=== PATIENT | male | born 1945 | race African-American/Black ===

== ENCOUNTER 2024-11-25 09:37 | Inpatient (IN) | payer MEDICARE ==
[2024-11-25] VITALS (51 sets, daily range): BP systolic 99–217; BP diastolic 43–203; PULSE 87–114; RESP 12–37; TEMP 37.6–39.4; O2SAT 93–99
[~2024-11-25] VITALS: Ht 170.2 cm; Wt 94.3 kg
[2024-11-25] MEDS ORDERED: ATOR-2 PO (09:49)
[2024-11-25] MEDS ORDERED: INSU100I32 SUBCUT (09:49)
[2024-11-25] MEDS ORDERED: TAMS-54 PO (09:49)
[2024-11-25] MEDS ORDERED: INSU100I28 SUBCUT (09:49)
[2024-11-25] MEDS ORDERED: LOSA1TAB40 PO (09:49)
[2024-11-25] MEDS ORDERED: LORAZEPAM 2MG/ML INJ IV ONE (10:15)
[2024-11-25] MEDS: LORAZEPAM 2MG/ML UD SYRINGE IV NR (10:25)
[2024-11-25] MEDS ORDERED: ACETAMINOPHEN 325MG SUPP PR ONE (10:30)
[2024-11-25] MEDS: PIPERACILLIN/TAZO 3.375G/50ML 50 ML IV ONE (10:34)
[2024-11-25] MEDS: SODIUM CHLORIDE 0.9% (SEPSIS BOLUS) IV ONE (10:43)
[2024-11-25] MEDS: LEVETIRACETAM 1500MG PREMIX 100 ML IV SCH ×2 (10:48→21:43)
[2024-11-25 10:52] LABS: HEMATOCRIT. 50.9 % (42.0-52.0); HEMOGLOBIN. 15.9 g/dL (14.0-18.0); MEAN CORPUSCULAR HEMOGLOBIN 27.5 pg (28.0-32.0); MEAN CORPUSCULAR HGB CONC 31.3 g/dL (31.0-37.0); MEAN CORPUSCULAR VOLUME 87.9 fL (80.0-94.0); MEAN PLATELET VOLUME 8.6 fl (7.4-10.4); PLATELET 233 x1000/uL (130-400); RED BLOOD CELL COUNT 5.79 mill/uL (4.7-6.1); RED CELL DISTRIBUTION WIDTH 16.2 % (11.6-14.6); WHITE BLOOD COUNT 12.4 x1000/uL (4.5-11.0)
[2024-11-25 10:53] LABS: DIFFERENTIAL COMMENT 1
[2024-11-25 11:01] LABS: CHLORIDE 103 mEq/L (98-107); POTASSIUM 4.2 mEq/L (3.5-5.1); PROTHROMBIN TIME 10.9 sec (9.6-11.0); SODIUM 138 mEq/L (136-145)
[2024-11-25 11:02] LABS: CALCIUM 8.9 mg/dL (8.7-10.4); CARBON DIOXIDE 15 mEq/L (21-32)
[2024-11-25] MEDS: ACETAMINOPHEN 650MG SUPP PR NR (11:06)
[2024-11-25 11:07] LABS: CREATININE 1.3 mg/dL (0.6-1.3); GLUCOSE 363 mg/dL (70-105); UREA NITROGEN BLOOD 16 mg/dL (9-23)
[2024-11-25 11:08] LABS: ETHANOL BLOOD < 10 mg/dL (<10)
[2024-11-25 11:09] LABS: ALANINE AMINOTRANSFERASE 20 IU/L (10-49); ALBUMIN 3.8 g/dL (3.2-4.8); ASPARTATE AMINOTRANSFERASE 21 IU/L (<34); BILIRUBIN DIRECT 0.1 mg/dL (<=3.0)
[2024-11-25 11:10] LABS: BETA HYDROXYBUTYRATE 7.2 mMol/L (0.0-0.3); BILIRUBIN TOTAL 0.7 mg/dL (0.1-1.0)
[2024-11-25] MEDS: VANCOMYCIN 1G PREMIX 200 ML IV ONE (11:13)
[2024-11-25] MEDS: IOHEXOL-350 100 ML BOTTLE ONE (11:13)
[2024-11-25 11:27] LABS: LACTIC ACID 3.6 mmol/L (0.4-2.0)
[2024-11-25] MEDS ORDERED: BLOOD SUGAR DIAGNOSTIC STRIP TEST PRN ×2 (11:30→11:45)
[2024-11-25 11:32] LABS: TROPONIN I HIGH SENSITIVITY 87 ng/L (3.0-53)
[2024-11-25] MEDS ORDERED: DEXT 5%/0.9% NACL 1,000 ML IV SCH (11:45)
[2024-11-25] MEDS ORDERED: KCL 20MEQ/100ML PREMIX 100 ML IV PRN (11:45)
[2024-11-25] MEDS ORDERED: DEXTROSE 50% WATER 50ML SYRINGE IV PRN ×2 (11:45→13:30)
[2024-11-25] MEDS ORDERED: POTASSIUM CHLORIDE 40 MEQ in SODIUM CHLORIDE 0.9% 230 ML IV PRN ×2 (11:45→12:00)
[2024-11-25] MEDS ORDERED: INSULIN REGULAR (DRIP) 100 UNITS in SODIUM CHLORIDE 0.9% 99 ML IV SCH (11:45)
[2024-11-25] MEDS ORDERED: SODIUM PHOSPHATE 15 MMOL in SODIUM CHLORIDE 0.9% 245 ML IV PRN ×2 (11:45→12:00)
[2024-11-25] MEDS ORDERED: MAGNESIUM 2 G PREMIX 50 ML IV PRN ×2 (11:45→12:00)
[2024-11-25] MEDS: BLOOD SUGAR DIAGNOSTIC STRIP TEST SCH ×2 (11:53→13:55)
[2024-11-25] MEDS ORDERED: ACETAMINOPHEN 325MG TABLET PO PRN (12:00)
[2024-11-25] MEDS ORDERED: PIPERACILLIN/TAZOBACTAM 3.375 G in DEXTROSE 5% WATER 50 ML IV SCH (12:00)
[2024-11-25] MEDS ORDERED: ONDANSETRON HCL 4MG/2ML INJ IV PRN (12:00)
[2024-11-25] MEDS ORDERED: NICARDIPINE 40MG/200ML PREMIX 200 ML IV PRN (12:00)
[2024-11-25] MEDS ORDERED: MAGNESIUM/ALUMINUM HYDROXIDE/SIMETHICONE 30ML UDC PO PRN (12:00)
[2024-11-25] MEDS ORDERED: NA PHOS,M-B/NA PHOS,DI-BA ENEMA 118ML PR PRN (12:00)
[2024-11-25] MEDS ORDERED: IPRATROPIUM/ALBUTEROL 0.5-3(2.5)MG/3ML NEB HHN PRN (12:00)
[2024-11-25] MEDS ORDERED: DOCUSATE SODIUM 100MG CAPSULE PO PRN (12:00)
[2024-11-25 12:05] LABS: BG BASE EXCESS -11.8 mmol/L (-2.0-3.0); BG CARBOXYHEMOGLOBIN 0.8 % (0.5-1.5); BG DEOXYHEMOGLOBIN 3.7 % (0.0-5.0); BG FRACTION INSPIRED OXYGEN 21; BG HCO3 ACT 11.3 mmol/L (21.0-28.0); BG METHEMOGLOBIN 0.1 % (0.5-1.5); BG OXYGEN SATURATION 96.3 % (94.0-98.0); BG OXYHEMOGLOBIN 95.4 % (94.0-98.0); BG PCO2 21.5 mmHg (35.0-48.0); BG PO2 80.6 mmHg (83.0-108.0); BG SAMPLE SITE RIGHT BRACHIAL; BG TOTAL HEMOGLOBIN 16.3 g/dL (13.5-17.5); BG VENT MODE ROOM AIR
[2024-11-25 12:14] LABS: CHLORIDE 105 mEq/L (98-107); POTASSIUM 4.3 mEq/L (3.5-5.1); SODIUM 138 mEq/L (136-145)
[2024-11-25] MEDS: SODIUM CHLORIDE 0.9% 1,000 ML IV SCH (12:14)
[2024-11-25] MEDS: INSULIN REGULAR 100U/100ML PMX 100 ML IV SCH ×2 (12:14→19:20)
[2024-11-25 12:15] LABS: CALCIUM 8.5 mg/dL (8.7-10.4); CARBON DIOXIDE 15 mEq/L (21-32)
[2024-11-25] MEDS ORDERED: VASOPRESSIN 20 UNIT in SODIUM CHLORIDE 0.9% 99 ML IV PRN (12:15)
[2024-11-25 12:19] LABS: PLATELET ESTIMATE NORMAL
[2024-11-25 12:20] LABS: CREATININE 1.3 mg/dL (0.6-1.3); GLUCOSE 371 mg/dL (70-105); UREA NITROGEN BLOOD 14 mg/dL (9-23)
[2024-11-25 12:22] LABS: ANISOCYTOSIS 1+
[2024-11-25 12:22] LABS: PHOSPHORUS 3.4 mg/dL (2.5-4.9)
[2024-11-25] MEDS: INSULIN REGULAR (HUMULIN R) 1000UNITS/10ML VIAL IV NR (12:31)
[2024-11-25 12:43] LABS: *AMPHETAMINES SCREEN URINE NEGATIVE (NEGATIVE); *BARBITURATES SCREEN URINE NEGATIVE (NEGATIVE); *BENZODIAZEPINES SCREEN URINE NEGATIVE (NEGATIVE); *COCAINE SCREEN URINE NEGATIVE (NEGATIVE); CANNABINOID URINE SCREEN NEGATIVE (NEGATIVE); METHADONE URINE SCREEN NEGATIVE (NEGATIVE); OPIATES URINE SCREEN NEGATIVE (NEGATIVE); PHENCYCLIDINE URINE SCREEN NEGATIVE (NEGATIVE)
[2024-11-25 12:44] LABS: ECSTASY MDMA SCREEN URINE NEGATIVE (NEGATIVE)
[2024-11-25 12:51] LABS: CHLORIDE 107 mEq/L (98-107); SODIUM 138 mEq/L (136-145)
[2024-11-25 12:52] LABS: CALCIUM 8.7 mg/dL (8.7-10.4); CARBON DIOXIDE 11 mEq/L (21-32)
[2024-11-25 12:57] LABS: CREATININE 1.2 mg/dL (0.6-1.3); GLUCOSE 371 mg/dL (70-105)
[2024-11-25 12:58] LABS: LDL CHOLESTEROL 221 mg/dL (5-100); TRIGLYCERIDE 130 mg/dL (0-150); UREA NITROGEN BLOOD 13 mg/dL (9-23)
[2024-11-25 12:59] LABS: CHOLESTEROL 302 mg/dL (<200); HDL CHOLESTEROL 45 mg/dL (>55)
[2024-11-25 13:02] LABS: T4 FREE 1.26 ng/dL (0.89-1.76); THYROID STIMULATING HORMONE 0.69 uIU/mL (0.55-4.78)
[2024-11-25 13:16] LABS: CLARITY URINE CLEAR (CLEAR); COLOR URINE STRAW (YELLOW); GLUCOSE URINE 3+ (NEGATIVE); PH URINE 5.5 (4.5-8.0); PROTEIN URINE 3+ (NEGATIVE)
[2024-11-25 13:17] LABS: KETONES URINE 3+ (NEGATIVE); LEUKOCYTE ESTERASE URINE NEGATIVE (NEGATIVE); NITRITE URINE NEGATIVE (NEGATIVE); OCCULT BLOOD URINE 3+ (NEGATIVE); UROBILINOGEN URINE 0.2 E.U./dL (0.2-1.0)
[2024-11-25 13:41] LABS: SQUAMOUS EPITHELIAL CELL URINE 1+ /lpf (RARE/1+)
[2024-11-25 13:42] LABS: BACTERIA URINE TRACE; WBC URINE 0-2 /hpf (0-2)
[2024-11-25] MEDS: HYDRALAZINE 20MG/ML VIAL IV NR (13:55)
[2024-11-25] MEDS: ENOXAPARIN 40MG/0.4ML SYR SUBCUT SCH (13:57)
[2024-11-25] MEDS: LORAZEPAM 2MG/ML UD SYRINGE IV PRN (14:00)
[2024-11-25] MEDS: SODIUM CHLORIDE 0.45% 1,000 ML IV SCH (14:01)
[2024-11-25] MEDS ORDERED: GADOTERATE MEGLUMINE 5 MMOL/10 ML VIAL IV ONE (14:45)
[2024-11-25] MEDS: DEXT 5%/0.45% NACL 1000ML 1,000 ML IV SCH (15:30)
[2024-11-25] MEDS: PANTOPRAZOLE SODIUM 40 MG/VIAL IV SCH (15:31)
[2024-11-25] MEDS: VANCOMYCIN 750MG PREMIX 150 ML IV NR (15:32)
[2024-11-25 16:15] LABS: CARBON DIOXIDE 16 mEq/L (21-32); CHLORIDE 112 mEq/L (98-107); POTASSIUM 3.2 mEq/L (3.5-5.1); SODIUM 143 mEq/L (136-145)
[2024-11-25 16:22] LABS: PHOSPHORUS 1.4 mg/dL (2.5-4.9)
[2024-11-25 16:23] LABS: CREATINE KINASE 145 IU/L (46-171)
[2024-11-25 16:34] LABS: TROPONIN I HIGH SENSITIVITY 190 ng/L (3.0-53)
[2024-11-25] MEDS: HYDRALAZINE 20MG/ML VIAL IV PRN (16:36)
[2024-11-25] MEDS: DOXYCYCLINE 100MG/100ML 100 ML IV SCH (16:38)
[2024-11-25] MEDS: KCL 20MEQ/100ML PREMIX 100 ML IV PRN (16:38)
[2024-11-25] MEDS: LACOSAMIDE IV SCH (17:32)
[2024-11-25] MEDS: SODIUM CHLORIDE 0.9% IV SCH (17:32)
[2024-11-25] MEDS: CEFTRIAXONE 1GM/50ML 50 ML IV NR (17:33)
[2024-11-25] MEDS: METRONIDAZOLE 500MG TABLET PO SCH (17:47)
[2024-11-25] MEDS ORDERED: LEVETIRACETAM 1,000MG in NACL 100ML PREMIX IV SCH (21:00)
[2024-11-25] MEDS: ATORVASTATIN CALCIUM 40MG TABLET PO SCH (21:43)
[2024-11-25] MEDS: ACETAMINOPHEN 1000MG/100ML 100 ML IV PRN (21:46)
[2024-11-25] MEDS: INSULIN GLARGINE 100 UNITS/ML SUBCUT NR (23:49)
[2024-11-25 23:50] LABS: CHLORIDE 112 mEq/L (98-107); POTASSIUM 3.7 mEq/L (3.5-5.1); SODIUM 139 mEq/L (136-145)
[2024-11-25 23:51] LABS: CARBON DIOXIDE 16 mEq/L (21-32)
[2024-11-25 23:58] LABS: CREATINE KINASE 310 IU/L (46-171); PHOSPHORUS 1.8 mg/dL (2.5-4.9)
[2024-11-26] VITALS (90 sets, daily range): BP systolic 96–192; BP diastolic 48–159; PULSE 76–95; RESP 17–31; TEMP 37.1–37.8; O2SAT 94–100
[2024-11-26 00:05] LABS: TROPONIN I HIGH SENSITIVITY 205 ng/L (3.0-53)
[2024-11-26 00:20] LABS: HEPATITIS B SURFACE ANTIGEN NEGATIVE (Negative)
[2024-11-26 00:41] LABS: HEPATITIS C AB NON REACTIVE (Neg) (Negative)
[2024-11-26 02:45] LABS: BG BASE EXCESS -6.4 mmol/L (-2.0-3.0); BG CARBOXYHEMOGLOBIN 1.1 % (0.5-1.5); BG DEOXYHEMOGLOBIN 3.3 % (0.0-5.0); BG HCO3 ACT 17.6 mmol/L (21.0-28.0); BG METHEMOGLOBIN 0.1 % (0.5-1.5); BG OXYGEN SATURATION 96.7 % (94.0-98.0); BG OXYHEMOGLOBIN 95.5 % (94.0-98.0); BG PH 7.371 (7.350-7.450); BG PO2 81.8 mmHg (83.0-108.0); BG SAMPLE SITE LEFT RADIAL; BG TOTAL HEMOGLOBIN 14.9 g/dL (13.5-17.5); BG VENT MODE ROOM AIR
[2024-11-26] MEDS: VANCOMYCIN 750MG/150ML (BAXTER) IV SCH (04:50)
[2024-11-26] MEDS ORDERED: DEXTROSE 50% WATER 50ML SYRINGE IV PRN (05:45)
[2024-11-26 06:19] LABS: BASOPHILS % 0.3 % (0.0-2.0); HEMATOCRIT. 46.1 % (42.0-52.0); HEMOGLOBIN. 14.8 g/dL (14.0-18.0); LYMPHOCYTES % 15.6 % (20.0-50.0); MEAN CORPUSCULAR HEMOGLOBIN 27.7 pg (28.0-32.0); MEAN CORPUSCULAR VOLUME 86.6 fL (80.0-94.0); MEAN PLATELET VOLUME 8.7 fl (7.4-10.4); MONOCYTES % 12.3 % (2.0-8.0); NEUTROPHILS % 71.8 % (40.0-76.0); PLATELET 165 x1000/uL (130-400); RED BLOOD CELL COUNT 5.32 mill/uL (4.7-6.1); RED CELL DISTRIBUTION WIDTH 16.1 % (11.6-14.6); WHITE BLOOD COUNT 13.7 x1000/uL (4.5-11.0)
[2024-11-26] MEDS: BLOOD SUGAR DIAGNOSTIC STRIP TEST SCH ×2 (06:30→18:00)
[2024-11-26 06:46] LABS: CALCIUM 8.3 mg/dL (8.7-10.4); CARBON DIOXIDE 15 mEq/L (21-32); CHLORIDE 109 mEq/L (98-107); SODIUM 139 mEq/L (136-145)
[2024-11-26 06:52] LABS: CREATININE 1.1 mg/dL (0.6-1.3); GLUCOSE 235 mg/dL (70-105); UREA NITROGEN BLOOD 14 mg/dL (9-23)
[2024-11-26] MEDS: INSULIN LISPRO 100 UNITS/ML SUBCUT SCH ×2 (07:03→07:04)
[2024-11-26] MEDS: NITROGLYCERIN 50MG PREMIX 250 ML IV PRN (08:00)
[2024-11-26] MEDS ORDERED: NICARDIPINE 40MG/200ML PREMIX 200 ML IV PRN (09:15)
[2024-11-26] MEDS: INSULIN GLARGINE 100 UNITS/ML SUBCUT SCH ×2 (09:23→21:18)
[2024-11-26] MEDS: ASPIRIN 81MG TABLET PO SCH (09:30)
[2024-11-26] MEDS: LOSARTAN 100 MG TABLET PO SCH (09:31)
[2024-11-26] MEDS: TAMSULOSIN HCL 0.4MG SR CAPSULE PO SCH (09:32)
[2024-11-26] MEDS: HYDROCHLOROTHIAZIDE 12.5MG CAPSULE PO SCH (09:33)
[2024-11-26] MEDS: DOXYCYCLINE 100MG/100ML 100 ML IV SCH (09:34)
[2024-11-26 09:39] LABS: BG BASE EXCESS -6.8 mmol/L (-2.0-3.0); BG CARBOXYHEMOGLOBIN 0.7 % (0.5-1.5); BG DEOXYHEMOGLOBIN 2.8 % (0.0-5.0); BG HCO3 ACT 16.7 mmol/L (21.0-28.0); BG OXYGEN SATURATION 97.2 % (94.0-98.0); BG OXYHEMOGLOBIN 96.5 % (94.0-98.0); BG PCO2 28.8 mmHg (35.0-48.0); BG PH 7.381 (7.350-7.450); BG PO2 84.1 mmHg (83.0-108.0); BG TOTAL HEMOGLOBIN 15.6 g/dL (13.5-17.5); BG VENT MODE ROOM AIR
[2024-11-26] MEDS: SODIUM BICARBONATE 8.4% 50MEQ/50ML SYR IV NR (11:55)
[2024-11-26] MEDS: SODIUM CHLORIDE 0.9% 1,000 ML IV SCH (12:00)
[2024-11-26 12:05] LABS: CHLORIDE 110 mEq/L (98-107); POTASSIUM 3.7 mEq/L (3.5-5.1); SODIUM 137 mEq/L (136-145)
[2024-11-26 12:07] LABS: CALCIUM 7.9 mg/dL (8.7-10.4); CARBON DIOXIDE 18 mEq/L (21-32)
[2024-11-26 12:11] LABS: GLUCOSE 272 mg/dL (70-105)
[2024-11-26 12:12] LABS: UREA NITROGEN BLOOD 14 mg/dL (9-23)
[2024-11-26 13:10] LABS: AMMONIA 20 uMol/L (<32)
[2024-11-26] MEDS: INSULIN GLARGINE 100 UNITS/ML SUBCUT NR (14:20)
[2024-11-26] MEDS ORDERED: IOHEXOL-350 100 ML BOTTLE ONE (14:23)
[2024-11-26 16:14] LABS: PHOSPHORUS 2.6 mg/dL (2.5-4.9)
[2024-11-26] MEDS: ACETAMINOPHEN 325MG TABLET PO PRN (18:27)
[2024-11-26 20:06] LABS: CHLORIDE 111 mEq/L (98-107); POTASSIUM 3.7 mEq/L (3.5-5.1); SODIUM 141 mEq/L (136-145)
[2024-11-26 20:07] LABS: CALCIUM 8.1 mg/dL (8.7-10.4); CARBON DIOXIDE 21 mEq/L (21-32)
[2024-11-26 20:12] LABS: CREATININE 0.9 mg/dL (0.6-1.3); GLUCOSE 279 mg/dL (70-105); UREA NITROGEN BLOOD 12 mg/dL (9-23)
[2024-11-26] MEDS ORDERED: INSULIN GLARGINE 100 UNITS/ML SUBCUT SCH (21:00)
[2024-11-27] VITALS (64 sets, daily range): BP systolic 105–170; BP diastolic 54–122; PULSE 74–90; RESP 14–30; TEMP 36.4–36.9; O2SAT 93–100
[2024-11-27] MEDS: VANCOMYCIN 1GM/200ML PMX (BAXTER) IV SCH (00:19)
[2024-11-27 05:48] LABS: CHLORIDE 111 mEq/L (98-107); POTASSIUM 3.6 mEq/L (3.5-5.1); SODIUM 143 mEq/L (136-145)
[2024-11-27 05:49] LABS: CALCIUM 8.1 mg/dL (8.7-10.4); CARBON DIOXIDE 23 mEq/L (21-32)
[2024-11-27 05:53] LABS: BASOPHILS % 0.4 % (0.0-2.0); EOSINOPHILS % 1.1 % (0.0-5.0); HEMATOCRIT. 44.7 % (42.0-52.0); HEMOGLOBIN. 14.5 g/dL (14.0-18.0); LYMPHOCYTES % 14.1 % (20.0-50.0); MEAN CORPUSCULAR HEMOGLOBIN 27.9 pg (28.0-32.0); MEAN CORPUSCULAR HGB CONC 32.3 g/dL (31.0-37.0); MEAN CORPUSCULAR VOLUME 86.2 fL (80.0-94.0); MEAN PLATELET VOLUME 8.2 fl (7.4-10.4); MONOCYTES % 8.5 % (2.0-8.0); NEUTROPHILS % 75.9 % (40.0-76.0); PLATELET 156 x1000/uL (130-400); RED BLOOD CELL COUNT 5.19 mill/uL (4.7-6.1); RED CELL DISTRIBUTION WIDTH 16.3 % (11.6-14.6); WHITE BLOOD COUNT 9.2 x1000/uL (4.5-11.0)
[2024-11-27 05:55] LABS: CREATININE 0.9 mg/dL (0.6-1.3); GLUCOSE 298 mg/dL (70-105); UREA NITROGEN BLOOD 12 mg/dL (9-23)
[2024-11-27 08:11] LABS: PHOSPHORUS 2.4 mg/dL (2.5-4.9)
[2024-11-27] MEDS: AMLODIPINE 10MG TABLET PO SCH (11:52)
[2024-11-27] MEDS: POTASSIUM CHLORIDE 20MEQ/PACKET PO NR (11:53)
[2024-11-27] MEDS: BLOOD SUGAR DIAGNOSTIC STRIP TEST SCH (11:54)
[2024-11-27] MEDS: VANCOMYCIN 1.25GM/250ML 250 ML IV SCH (11:54)
[2024-11-27] MEDS: SODIUM CHLORIDE 0.9% 1,000 ML IV SCH (14:00)
[2024-11-27] MEDS: HYDRALAZINE HCL 50MG TABLET PO SCH (14:48)
[2024-11-27] MEDS: INSULIN LISPRO 100 UNITS/ML SUBCUT SCH (17:49)
[2024-11-27] MEDS: LACOSAMIDE 100MG TABLET PO SCH (21:28)
[2024-11-28] VITALS (7 sets, daily range): BP systolic 123–158; BP diastolic 50–72; PULSE 79–92; RESP 17–18; TEMP 36.5–36.7; O2SAT 96–99
[2024-11-28] MEDS: INSULIN GLARGINE 100 UNITS/ML SUBCUT SCH (10:27)
[2024-11-28 10:39] LABS: HEMOGLOBIN 13.3 g/dL (14.0-18.0); MEAN CORPUSCULAR HEMOGLOBIN 27.6 pg (28.0-32.0); MEAN CORPUSCULAR HGB CONC 32.4 g/dL (31.0-37.0); MEAN CORPUSCULAR VOLUME 85.2 fL (80.0-94.0); PLATELET 161 x1000/uL (130-400); RED BLOOD CELL COUNT 4.82 mill/uL (4.7-6.1); RED CELL DISTRIBUTION WIDTH 16.2 % (11.6-14.6); WHITE BLOOD COUNT 8.5 x1000/uL (4.5-11.0)
[2024-11-28 10:52] LABS: CHLORIDE 110 mEq/L (98-107); POTASSIUM 3.4 mEq/L (3.5-5.1); SODIUM 139 mEq/L (136-145)
[2024-11-28 10:53] LABS: CALCIUM 8.1 mg/dL (8.7-10.4); CARBON DIOXIDE 20 mEq/L (21-32)
[2024-11-28 10:58] LABS: CREATININE 0.8 mg/dL (0.6-1.3); GLUCOSE 301 mg/dL (70-105); UREA NITROGEN BLOOD 9 mg/dL (9-23)
[2024-11-28 12:15] LABS: TROPONIN I HIGH SENSITIVITY 70 ng/L (3.0-53)
[2024-11-28] MEDS: POTASSIUM CHLORIDE 20MEQ TABLET SR PO NR (12:53)
[2024-11-28] MEDS: CEFTRIAXONE 1GM/50ML 50ML IV SCH (14:00)
[2024-11-28] MEDS: REGADENOSON 0.4 MG/5 ML IV NR (15:15)
[2024-11-28] MEDS: DOXYCYCLINE HYCLATE 100MG CAPSULE PO SCH (21:26)
[2024-11-28] MEDS: PANTOPRAZOLE 40MG DR TABLET PO SCH (21:27)
[2024-11-28] MEDS: HYDRALAZINE HCL 50MG TABLET PO SCH (21:42)
[2024-11-28] MEDS: LEVETIRACETAM 500MG/5ML CUP PO SCH (21:51)
[2024-11-29] VITALS (7 sets, daily range): BP systolic 96–166; BP diastolic 51–65; PULSE 75–89; RESP 18–19; TEMP 35.9–36.9; O2SAT 97–99
[2024-11-29 06:39] LABS: CHLORIDE 111 mEq/L (98-107); POTASSIUM 3.5 mEq/L (3.5-5.1); SODIUM 142 mEq/L (136-145)
[2024-11-29 06:40] LABS: CALCIUM 8.5 mg/dL (8.7-10.4); CARBON DIOXIDE 21 mEq/L (21-32)
[2024-11-29 06:45] LABS: CREATININE 0.9 mg/dL (0.6-1.3); GLUCOSE 88 mg/dL (70-105); UREA NITROGEN BLOOD 12 mg/dL (9-23)
[2024-11-29 06:47] LABS: BASOPHILS % 0.3 % (0.0-2.0); EOSINOPHILS % 1.3 % (0.0-5.0); HEMOGLOBIN. 13.3 g/dL (14.0-18.0); LYMPHOCYTES % 17.9 % (20.0-50.0); MEAN CORPUSCULAR HEMOGLOBIN 28.1 pg (28.0-32.0); MEAN CORPUSCULAR HGB CONC 33.3 g/dL (31.0-37.0); MEAN CORPUSCULAR VOLUME 84.4 fL (80.0-94.0); MEAN PLATELET VOLUME 9.1 fl (7.4-10.4); MONOCYTES % 9.7 % (2.0-8.0); NEUTROPHILS % 70.8 % (40.0-76.0); PLATELET 185 x1000/uL (130-400); RED BLOOD CELL COUNT 4.74 mill/uL (4.7-6.1); RED CELL DISTRIBUTION WIDTH 16.1 % (11.6-14.6); WHITE BLOOD COUNT 7.9 x1000/uL (4.5-11.0)
[2024-11-29 06:54] LABS: TROPONIN I HIGH SENSITIVITY 85 ng/L (3.0-53)
[2024-11-29] MEDS ORDERED: LIDOCAINE HCL 1% 10 MG/ML 10ML VIAL ONE (08:19)
[2024-11-29] MEDS: POTASSIUM CHLORIDE 20MEQ TABLET SR PO NR (10:26)
[2024-11-29] MEDS: HYDRALAZINE HCL 50MG TABLET PO SCH (14:01)
[2024-11-30] VITALS: BP 140/58; PULSE 85; RESP 19; TEMP 36.5; O2SAT 99
[2024-11-30 04:00] VITALS: BP 133/47; PULSE 84; RESP 19; TEMP 36.7; O2SAT 95
[2024-11-30 06:37] LABS: CARBON DIOXIDE 22 mEq/L (21-32); CHLORIDE 110 mEq/L (98-107); POTASSIUM 3.6 mEq/L (3.5-5.1); SODIUM 140 mEq/L (136-145)
[2024-11-30 06:38] LABS: CALCIUM 8.2 mg/dL (8.7-10.4)
[2024-11-30 06:42] LABS: CREATININE 0.9 mg/dL (0.6-1.3); GLUCOSE 100 mg/dL (70-105)
[2024-11-30 06:43] LABS: UREA NITROGEN BLOOD 14 mg/dL (9-23)
[2024-11-30 07:05] LABS: BASOPHILS % 0.4 % (0.0-2.0); EOSINOPHILS % 2.8 % (0.0-5.0); HEMATOCRIT. 38.4 % (42.0-52.0); HEMOGLOBIN. 12.8 g/dL (14.0-18.0); MEAN CORPUSCULAR HEMOGLOBIN 28.3 pg (28.0-32.0); MEAN CORPUSCULAR HGB CONC 33.3 g/dL (31.0-37.0); MEAN CORPUSCULAR VOLUME 84.9 fL (80.0-94.0); MONOCYTES % 9.7 % (2.0-8.0); NEUTROPHILS % 70.1 % (40.0-76.0); PLATELET 187 x1000/uL (130-400); RED BLOOD CELL COUNT 4.53 mill/uL (4.7-6.1); RED CELL DISTRIBUTION WIDTH 15.8 % (11.6-14.6); WHITE BLOOD COUNT 7.8 x1000/uL (4.5-11.0)
[2024-11-30 07:31] LABS: TROPONIN I HIGH SENSITIVITY 73 ng/L (3.0-53)
[2024-11-30 08:00] VITALS: BP 152/62; PULSE 81; RESP 18; TEMP 36.4; O2SAT 96
[2024-11-30] MEDS ORDERED: REGADENOSON 0.4 MG/5 ML IV ONE (09:19)
[2024-11-30] MEDS ORDERED: CAFFEINE CITRATE 20MG/ML 3ML VIAL IV ONE (10:48)
[2024-11-30 16:00] VITALS: BP 122/77; PULSE 81; RESP 18; TEMP 35.7; O2SAT 97
[2024-11-30 20:00] VITALS: BP 186/77; PULSE 79; RESP 20; TEMP 36.2; O2SAT 100
[2024-11-30] MEDS: CLONIDINE 0.1MG TABLET PO PRN (20:39)
[2024-12-01] VITALS: BP 142/52; PULSE 103; RESP 20; TEMP 36.2; O2SAT 97
[2024-12-01] MEDS: GUAIFENESIN 200MG/10ML SUGAR FREE UDC PO PRN (00:48)
[2024-12-01 04:00] VITALS: BP 141/58; PULSE 70; RESP 18; TEMP 36.1; O2SAT 99
[2024-12-01] MEDS: INSULIN LISPRO (LOW DOSE) 100 UNITS/ML SUBCUT SCH (07:02)
[2024-12-01] MEDS ORDERED: INSULIN LISPRO 100 UNITS/ML SUBCUT SCH (07:10)
[2024-12-01 08:00] VITALS: BP 129/56; PULSE 76; RESP 18; TEMP 36.9; O2SAT 97
[2024-12-01 12:00] VITALS: BP 122/49; PULSE 80; RESP 16; TEMP 36.6; O2SAT 96
[2024-12-01] MEDS ORDERED: LIDOCAINE HCL 1% 10 MG/ML 10ML VIAL ONE (12:55)
[2024-12-01 16:00] VITALS: BP 157/67; PULSE 79; RESP 18; TEMP 37; O2SAT 96
[2024-12-01 20:00] VITALS: BP 139/65; PULSE 78; RESP 20; TEMP 36.3; O2SAT 97
[2024-12-01] MEDS: INSULIN GLARGINE 100 UNITS/ML SUBCUT SCH (22:26)
[2024-12-02] VITALS (7 sets, daily range): BP systolic 113–135; BP diastolic 53–69; PULSE 71–83; RESP 18–20; TEMP 36.2–37.4; O2SAT 97–100
[2024-12-02 16:48] LABS: HEMOGLOBIN. 12.4 g/dL (14.0-18.0); MEAN CORPUSCULAR HEMOGLOBIN 27.8 pg (28.0-32.0); MEAN CORPUSCULAR HGB CONC 32.5 g/dL (31.0-37.0); MEAN CORPUSCULAR VOLUME 85.5 fL (80.0-94.0); MEAN PLATELET VOLUME 8.4 fl (7.4-10.4); PLATELET 245 x1000/uL (130-400); RED BLOOD CELL COUNT 4.45 mill/uL (4.7-6.1); RED CELL DISTRIBUTION WIDTH 15.9 % (11.6-14.6); WHITE BLOOD COUNT 6.6 x1000/uL (4.5-11.0)
[2024-12-02 16:53] LABS: DIFFERENTIAL COMMENT 1
[2024-12-02 16:59] LABS: CHLORIDE 111 mEq/L (98-107); POTASSIUM 3.7 mEq/L (3.5-5.1); SODIUM 142 mEq/L (136-145)
[2024-12-02 17:00] LABS: CALCIUM 8.3 mg/dL (8.7-10.4); CARBON DIOXIDE 23 mEq/L (21-32)
[2024-12-02 17:05] LABS: CREATININE 0.9 mg/dL (0.6-1.3); GLUCOSE 160 mg/dL (70-105); UREA NITROGEN BLOOD 10 mg/dL (9-23)
[2024-12-02 17:19] LABS: PLATELET ESTIMATE NORMAL
[2024-12-02] MEDS: INSULIN GLARGINE 100 UNITS/ML SUBCUT SCH (21:15)
[2024-12-03] VITALS: BP 120/62; PULSE 84; RESP 18; TEMP 37.1; O2SAT 98
[2024-12-03 04:00] VITALS: BP 125/69; PULSE 78; RESP 18; TEMP 36.8; O2SAT 97
[2024-12-03 08:05] VITALS: BP 101/53; PULSE 75; RESP 20; TEMP 37; O2SAT 96
[2024-12-03] MEDS ORDERED: AMLO10TA80 PO (10:23)
[2024-12-03] MEDS ORDERED: HYDR50TA39 PO (10:23)
[2024-12-03] MEDS ORDERED: PANT40TA51 PO (10:23)
[2024-12-03] MEDS ORDERED: LOSA100T33 PO (10:23)
[2024-12-03] MEDS ORDERED: ASPI-1160 PO (10:23)
[2024-12-03] MEDS ORDERED: KEPPSOL PO (10:23)
[2024-12-03] MEDS ORDERED: INSLIS SUBCUT (10:23)
[2024-12-03] MEDS ORDERED: LANTUSUD SUBCUT (10:23)
[2024-12-03] MEDS ORDERED: LACO100T2 PO (10:23)
[2024-12-03] MEDS ORDERED: HYDR12.54 MT (10:25)
[2024-12-03 12:00] VITALS: BP 137/59; PULSE 74; RESP 18; TEMP 36.5; O2SAT 98
[2024-12-03 16:10] VITALS: BP 126/50; PULSE 78; RESP 18; TEMP 36.6; O2SAT 98
[2024-12-03 16:16] VITALS: BP 137/59; PULSE 74; TEMP 97.7; O2SAT 98
== END 2024-12-03 17:17 | disposition home health service (06) | DRG 871 ==
LOC: ER 09:41 → EDBEDREQ 11:05 → EDBEDREQSVC 11:05 → EDBEDREQTM 11:05 → MICUSO 11:39 → EDBEDREQTM 11:42 → EDBEDREQSVC 11:42 → 8WST 11-27 15:10
PROVIDERS: ADMIT Internal Medicine; ATTEND Internal Medicine
PROC: 4A00X4Z Measurement of Central Nervous Electrical Activity, External Approach (ICD-10-PCS; 2024-11-25)
PROC: 02HV33Z Insertion of Infusion Device into Superior Vena Cava, Percutaneous Approach (ICD-10-PCS; principal; 2024-11-29)
PROC: B548ZZA Ultrasonography of Superior Vena Cava, Guidance (ICD-10-PCS; 2024-11-29)
PROC: 02HV33Z Insertion of Infusion Device into Superior Vena Cava, Percutaneous Approach (ICD-10-PCS; 2024-12-01)
PROC: B548ZZA Ultrasonography of Superior Vena Cava, Guidance (ICD-10-PCS; 2024-12-01)
PROC: B5181ZA Fluoroscopy of Superior Vena Cava using Low Osmolar Contrast, Guidance (ICD-10-PCS; 2024-12-01)
DX: A41.9 Sepsis, unspecified organism (principal); E11.10 Type 2 diabetes mellitus with ketoacidosis without coma; G93.41 Metabolic encephalopathy; J69.0 Pneumonitis due to inhalation of food and vomit; J96.01 Acute respiratory failure with hypoxia; N17.0 Acute kidney failure with tubular necrosis; I21.A1 Myocardial infarction type 2; I16.1 Hypertensive emergency; R56.9 Unspecified convulsions; I25.10 Atherosclerotic heart disease of native coronary artery without angina pectoris; E78.00 Pure hypercholesterolemia, unspecified; R33.9 Retention of urine, unspecified; R31.9 Hematuria, unspecified; E11.22 Type 2 diabetes mellitus with diabetic chronic kidney disease; E87.6 Hypokalemia; I12.9 Hypertensive chronic kidney disease with stage 1 through stage 4 chronic kidney disease, or unspecified chronic kidney disease; N18.9 Chronic kidney disease, unspecified; Z95.5 Presence of coronary angioplasty implant and graft; Z63.4 Disappearance and death of family member; Z78.1 Physical restraint status; Z79.4 Long term (current) use of insulin; Z79.899 Other long term (current) drug therapy; Z82.3 Family history of stroke; Z82.49 Family history of ischemic heart disease and other diseases of the circulatory system
CPT/HCPCS: 36415; 36573; 36600; 70496; 70498; 70553; 71045; 71275; 74018; 74176; 76770; 78452; 80048; 80051; 80061; 80076; 80202; 80305; 80320; 80339; 81003; 82010; 82140; 82375; 82550; 82805; 82962; 83036; 83605; 83735; 83880; 83930; 84100; 84145; 84153; 84439; 84443; 84484; 84681; 85025; 85027; 85379; 86705; 87340; 92610; 93005; 93017; 93306; 93970; 95816; 97110; 97116; 97162; 97166; 97530; 97535; 99291; A4606; A6261; A9500; A9577; C1725; J0360; J0696; J0706; J1650; J1815; J1953; J2003; J2060; J2470; J2543; J2785; J3370; J3480; J3490; J7030; J7042; J7050; Q9967; G0480; J0131